=== PATIENT | female | born 1955 | race African-American/Black ===

== ENCOUNTER → 2019-09-09 | Emergency (ER) | payer MEDICAID ==
[~2019-09-09] VITALS: Ht 167.6 cm; Wt 104.3 kg
[~2019-09-09] MED LIST: DEXTROSE (50%) 50ML SYRG IV ONE; EPINEPHrine HCL 1 MG/10 ML SYRG IV ONE; SODIUM BICARBONATE 8.4% INJ 50ML SYRINGE IV ONE
== END | disposition expired ==
LOC: EDUNIT# 20:23 → EDBD 20:29 → ER 20:32
DX: I46.9 Cardiac arrest, cause unspecified (principal); E11.9 Type 2 diabetes mellitus without complications; I48.91 Unspecified atrial fibrillation
CPT/HCPCS: 31500; 92950; 99285; J0171; J7042